=== PATIENT | male | born 2000 | race Caucasian/White ===

== ENCOUNTER 2022-02-23 23:49 | Emergency (ER) | payer SELFPAY ==
[~2022-02-23 23:49] MED LIST: AUGMENTIN 875-1 EACH PO
== END 2022-02-24 04:29 | disposition home or self-care (01) ==
LOC: ER1 23:49
DX: R51.9 Headache, unspecified (principal); Z20.822 Contact with and (suspected) exposure to COVID-19
CPT/HCPCS: 0240U; 96361; 96374; 96375; 99284; J1200; J1885; J2405